=== PATIENT | female | born 2000 | race Caucasian/White ===

== ENCOUNTER 2022-02-01 16:45 | Emergency (ER) | payer OTHER ==
[~2022-02-01] VITALS: Ht 160 cm; Wt 81.6 kg
== END 2022-02-01 17:23 | disposition home or self-care (01) ==
LOC: ER 16:45
DX: S61.215A Laceration without foreign body of left ring finger without damage to nail, initial encounter (principal); W26.0XXA Contact with knife, initial encounter; Y92.010 Kitchen of single-family (private) house as the place of occurrence of the external cause

== ENCOUNTER 2023-05-14 15:15 | Emergency (ER) | payer OTHER ==
[~2023-05-14] VITALS: Ht 162.6 cm; Wt 74.8 kg
== END 2023-05-14 19:33 | disposition home or self-care (01) ==
LOC: ER 15:15
DX: M25.572 Pain in left ankle and joints of left foot (principal); Z91.011 Allergy to milk products